=== PATIENT | female | born 1995 | race Caucasian/White ===

== ENCOUNTER → 2017-06-27 | Outpatient (CLI) | payer OTHER ==
[~2017-06-27] MED LIST: AMOX-559 PO; CEPH500C24 PO; FLU60SYR30 IM ONLY; GUAI120L3 PO; IUD; NAPR220C12 PO; Return to work
[2017-06-27 10:16] LABS: PLATELET COUNT, AUTOMATED 230 K/uL (150-450)
--- NOTE | 2017-06-27 11:08 | RADIOLOGY IMAGING REPORT ---
FACILITY: [facility] [place] PATIENT NAME: Екатерина Qureshi : 1995 MR: [id number] V: [id number] EXAM DATE: ORDERING PHYSICIAN: CECI MEDELLIN TECHNOLOGIST: Location: [facility] Patient: Екатерина Qureshi : 1995 Visit/Account:[id number] Date of Sevice: 06/27/2017 Exam type: CHEST PA AND LAT History: Cough Comparison: None. Findings: The lungs are free of acute effusions, infiltrates or edema. There is no evidence of a pneumothorax or pneumomediastinum. The cardiac silhouette is normal in size. The trachea is in midline. IMPRESSION: 1. No acute cardiopulmonary process is seen Report Dictated By: Tania Gerber MD at 06/27/2017 11:03 AM Report E-Signed By: Tania Gerber MD at 06/27/2017 11:04 AM WSN:[id number]
== END ==
LOC: LAB 09:46
PROVIDERS: ATTEND Nurse Practitioner Primary Care
DX: R05 Cough (principal)
CPT/HCPCS: 36415; 71046; 82040; 82247; 82310; 82374; 82435; 82565; 82947; 84075; 84132; 84155; 84295; 84450; 84460; 84520; 85025